=== PATIENT | male | born 1960 | race Two or more races ===

== ENCOUNTER 2020-09-30 11:08 | Emergency (ER) | payer SELFPAY ==
[~2020-09-30] VITALS: Ht 170.2 cm; Wt 79.5 kg
[2020-09-30 11:54] VITALS: BP 134/84
[2020-09-30] MEDS ORDERED: HYDR25TA PO (12:24)
[2020-09-30] MEDS ORDERED: TRIA15OI TP (12:24)
--- NOTE | 2020-09-30 12:24 | PHYS DOC ---
Past Medical History Past Medical History: No Pertinent History Past Surgical History: No Surgical History Smoking Status: Current Every Day Smoker Alcohol Use: None General Adult EDM: Chief Complaint: SKIN RASH/ABSCESS HPI: HPI: Patient is a 59 year old male patient who presents to the ED today complaining of a pruritic rash that began 2 weeks ago. Patient reports being seen at [facility] on September 11, 2020 and being given triamcinolone cream and hydr oxyzine. He states he was diagnosed with insect bites. He states he cleaned his house and sprayed it once but the rash is not going away. Denies any fever. Review of Systems: Review of Systems: Constitutional: Denies fever or chills. [] Musculoskeletal: Denies back pain or joint pain. [] Integument: Reports pruritic rash Neurologic: Denies headache, focal weakness or sensory changes. [] Psychiatric: Denies depression or anxiety. [] Heart Score: Risk Factors: Risk Factors: DM, Current or recent (<one month) smoker, HTN, HLP, family history of CAD, obesity. Risk Scores: Score 0 - 3: 2.5% MACE over next 6 weeks - Discharge Home Score 4 - 6: 20.3% MACE over next 6 weeks - Admit for Clinical Observation Score 7 - 10: 72.7% MACE over next 6 weeks - Early Invasive Strategies Allergies: Allergies: Allergies Coded Allergies Type Severity Reaction Last Updated Verified No Known Drug Allergies 09/30/20 No Physical Exam: PE: Constitutional: Well developed, well nourished, no acute distress, non-toxic appearance. [] Skin: Warm, dry, no erythema, small scattered areas of erythematous papular rash on the neck, chest and bilateral upper extremities consistent with insect bites Back: No tenderness, no CVA tenderness. [] Extremities: No tenderness, no cyanosis, no clubbing, ROM intact, no edema. [] Neurologic: Alert and oriented X 3, normal motor function, normal sensory func tion, no focal deficits noted. [] Psychologic: Affect normal, judgement normal, mood normal. [] Current Patient Data: Vital Signs: Vital Signs Date Time Temp Pulse Resp B/P (MAP) Pulse Ox O2 Delivery O2 Flow Rate FiO2 09/30/20 11:54 98.2 72 20 134/84 (101) 97 Room Air 98.2 EKG: EKG: [] Radiology/Procedures: Radiology/Procedures: [] Course & Med Decision Making: Course & Med Decision Making Pertinent Labs and Imaging studies reviewed. (See chart for details) This is a 59-year-old male patient presenting to the ED today with insect bites that began 2 weeks ago, he was seen at [facility] and given hydroxyzine and Triamcinolone cream. Encouraged him to continue using them, he state he has run out of the hydroxyzine. Rx was given. Recommended he continues to clean the house and clothes, and get it sprayed again. Recommended following up with a cigar inspector in 2 weeks. Dragon Disclaimer: Dragon Disclaimer: This electronic medical record was generated, in whole or in part, using a voice recognition dictation system. Departure Departure Impression: Primary Impression: Insect bites Qualified Codes: S10.86XA - Insect bite of other specified part of neck, initial encounter; W57.XXXA - Bitten or stung by nonvenomous insect and other nonvenomous arthropods, initial encounter Disposition: 01 DC HOME SELF CARE/HOMELESS Condition: STABLE Referrals: NO PCP (PCP) RODO GARDUNO MD follow up in 2-4 weeks Patient Instructions: Insect Bite, [id number] Additional Instructions: Please use the prescribed medications as ordered. Please continue to clean your house and clothes until the rash goes away completely, spray the house again. Use the medicine prescribed as ordered Scripts Hydroxyzine Hcl (HYDROXYZINE HCL) 25 Mg Tablet 1 TAB PO TID, #90 TAB 2 Refills Prov: FRANCISCO SIMMONS APRN 09/30/20 Triamcinolone Acetonide (TRIAMCINOLONE ACETONIDE 0.1% OINT) 15 Gm Oint...g. 1 SOLO TP BID for WOUND CARE, #1 TUBE 2 Refills Prov: FRANCISCO SIMMONS APRN 09/30/20 FRANCISCO SIMMONS APRN Sep 30, 2020 12:24
== END 2020-09-30 12:36 | disposition home or self-care (01) ==
LOC: ER 11:08
DX: S10.86XA Insect bite of other specified part of neck, initial encounter (principal); R21 Rash and other nonspecific skin eruption; L29.9 Pruritus, unspecified; F17.200 Nicotine dependence, unspecified, uncomplicated; W57.XXXA Bitten or stung by nonvenomous insect and other nonvenomous arthropods, initial encounter; Y93.89 Activity, other specified; Y92.89 Other specified places as the place of occurrence of the external cause; Y99.8 Other external cause status
CPT/HCPCS: 99283